=== PATIENT | male | born 1950 | race Caucasian/White ===

== ENCOUNTER 2023-09-22 21:15 | Emergency (ER) | payer BC, MEDICARE ==
[2023-09-22] MEDS: Sodium Chloride 0.9% 10 ML Syringe FLUSH PRN (21:38)
[2023-09-22] MEDS: Ondansetron 4 MG/2 ML SDV ONE (21:40)
[2023-09-22] MEDS: Ondansetron 4 MG/2 ML SDV IVPUSH ONE (21:42)
[2023-09-22] MEDS: fentaNYL 100 MCG/2 ML SDV ONE (21:47)
[2023-09-22] MEDS: fentaNYL 100 MCG/2 ML SDV IVPUSH ONE (21:48)
[2023-09-22] MEDS: Ketamine 200 MG/20 ML MDV ONE (21:59)
[2023-09-22] MEDS: Ketamine 200 MG/20 ML MDV IVPUSH ONE ×2 (22:03→22:09)
[2023-09-22] MEDS: LORazepam 2 MG/ML SDV ONE (22:04)
[2023-09-22] MEDS: LORazepam 2 MG/ML SDV IVPUSH ONE (22:05)
[2023-09-22 22:35] LABS: BASOPHILS ABSOLUTE AUTO 0.07 10^3/uL (0.00-0.10); BASOPHILS PERCENT AUTO 0.8 % (0.0-1.0); EOSINOPHILS ABSOLUTE AUTO 0.22 10^3/uL (0.10-0.30); EOSINOPHILS PERCENT AUTO 2.5 % (1.0-3.0); HEMATOCRIT 50.6 % (40.0-52.0); HEMOGLOBIN 16.6 g/dL (13.0-17.0); IMMATURE GRAN ABSOLUTE AUTO 0.02 10^3/uL (0.00-0.50); IMMATURE GRAN PERCENT AUTO 0.2 % (0.0-5.0); LYMPHOCYTES ABSOLUTE AUTO 1.99 10^3/uL (1.00-4.00); LYMPHOCYTES PERCENT AUTO 22.7 % (20.0-40.0); MEAN CORPUSCULAR HEMOGLOBIN 31.1 pg (27.0-31.0); MEAN CORPUSCULAR HGB CONC 32.8 g/dL (32.0-36.0); MEAN CORPUSCULAR VOLUME 94.8 fL (82.0-92.0); MEAN PLATELET VOLUME 9.8 fL (7.4-10.4); MONOCYTES ABSOLUTE AUTO 0.77 10^3/uL (0.10-0.80); MONOCYTES PERCENT AUTO 8.8 % (2.0-8.0); NEUTROPHILS ABSOLUTE AUTO 5.68 10^3/uL (2.50-7.00); PLATELET COUNT,PLT 282 10^3/uL (150-400); RED BLOOD CELL COUNT 5.34 10^6/uL (4.50-6.00); RED CELL DISTRIBUTION WIDTH 12.4 % (11.5-14.5); WHITE BLOOD CELL COUNT,WBC 8.75 10^3/uL (5.00-10.00)
[2023-09-22 22:43] LABS: ANION GAP 18.5 mmol/L (5-15); BLOOD UREA NITROGEN,BUN 15 mg/dL (7-18); CALCIUM 9.5 mg/dL (8.7-10.3); CHLORIDE,CL 98 mmol/L (98-107); CREATININE 0.78 mg/dL (0.51-1.17); ESTIMATED GFR 95 mL/min (>=60); GLUCOSE RANDOM 149 mg/dL (70-140); POTASSIUM,K 3.5 mmol/L (3.5-5.1); SODIUM,NA 138 mmol/L (136-145)
[2023-09-22] MEDS: Acetaminophen/HYDROcodone 325-5 MG Tab PO ONE (23:39)
== END 2023-09-22 23:55 | disposition home or self-care (01) ==
LOC: KA.ED 21:15 → SUPCPDRO 21:15 → KA.ED 23:55
DX: S82.431A Displaced oblique fracture of shaft of right fibula, initial encounter for closed fracture (principal); S93.04XA Dislocation of right ankle joint, initial encounter; S99.911A Unspecified injury of right ankle, initial encounter; X50.1XXA Overexertion from prolonged static or awkward postures, initial encounter
CPT/HCPCS: 27788; 73600-RT; 80048; 85025; 96374; 96375; 99283-25; A9270-GY; J2060; J2405; J3010; J3490; Q3014